=== PATIENT | male | born 1985 ===

== ENCOUNTER 2018-06-12 20:24 | Emergency (ER) | payer OTHER ==
[2018-06-12 20:44] VITALS: BP 126/72
--- NOTE | 2018-06-12 21:12 | UC ---
Hand/Wrist HPI - HPI Summary HPI Summary: Patient presents to urgent care for evaluation of forearm discomfort and erythema but happened while at work today. Patient works at [employer] and [facility] [employer]. Patient was in a restraint with a resident for probably 15 minutes. Patient states this occurred about 7:45 PM. Patient states his arm was flexed at the elbow, fully supinated and with extension of the wrist. Patient states after the restraint the dorsum of his hand was all purple in color and his fingers were white. Patient states since this time , normal coloration is coming back with us makes of pallor and redness to his fingers. Fingers are warm. Patient denies paresthesias of his fingers were dorsum of his hand. Patient does have erythema and tightness along his mid forearm, dorsal surface. Patient took Motrin are to arrival. Patient has small abrasions to his hands that were cleaned by the nurse at his facility and cover with a bandage. Patient also reportedly has a bite gustabo on his posterior upper arm with skin intact per the nurse where he works. Patient's tetanus is up-to- date. Patient's right-hand dominant. Patient states a few years ago he had a fracture to his forearm in the same restrained position. Patient's medications reviewed this visit - History Of Current Complaint Chief Complaint: UCUpperExtremity Stated Complaint: HAND INJURY Time Seen by Provider: 06/12/18 20:48 Hx Obtained From: Patient Onset/Duration: Sudden Onset Severity Initially: Mild Severity Currently: Mild Pain Intensity: 3 Pain Scale Used: 0-10 Numeric - Allergies/Home Medications Allergies/Adverse Reactions: Allergies Allergy/AdvReac Type Severity Reaction Status Date / Time No Known Allergies Allergy Verified 07/14/15 15:54 Home Medications: Home Medications Acetaminophen [Tylenol] 650 mg PO 06/12/18 [History] PMH/Surg Hx/FS Hx/Imm Hx Previously Healthy: Yes - Surgical History Surgical History: None Surgery Procedure, Year, and Place: testicular surgery - Family History Known Family History: Positive: None, Unknown - Social History Occupation: Employed Full-time Lives: With Family Alcohol Use: Rare Substance Use Type: None Smoking Status (MU): Current Every Day Smoker Type: Cigarettes Amount Used/How Often: 1/2 PPD Have You Smoked in the Last Year: Yes Review of Systems All Other Systems Reviewed And Are Negative: Yes Constitutional: Positive: Negative Skin: Positive: Other - abrasions Musculoskeletal: Positive: Other: - right forearm pain Is Patient Immunocompromised?: No Physical Exam - Summary Physical Exam Summary: Vital Signs Reviewed: Yes A+Ox3, no distress Eyes: Conjunctiva Clear ENT: Hearing grossly normal neck: supple Respiratory: Positive: No respiratory distress, No accessory muscle use Cardiovascular: skin color reflect adequate perfusion 2 radial, 2+ ulnar CBT < < 2 sec all fingers fingers warm, not dusky Musculoskeletal Exam: +abduct shoulder + flex.ext elbow, wrist + pronate/ supinate - pt with full range of motion but reports tightness in right mid dorsum forearm radial aspect + full ROM all fingers no crepitus Neurological: Positive: Alert, ambulatory without difficulty + thumb up, a ok, finger cross, finger spread + gross sensation all digits. reports paresthesia dorsum right forearm Psychological: Positive: Normal Response To Family Skin: Positive: no rash, no ecchymosis, erythematous patch right dorsum mid forearm. Pt dorsum hand and finger with patchy area or erythema and blanching - warm throughout no duskines s- color improving during evalution. Pt with scattered small, non suturable abraisons. no bleeding right posterior tricep pt with 2x2cm area erythema with mild ecchymosis - bite wound - skin intact Triage Information Reviewed: Yes Vital Signs: Initial Vital Signs Temp 98.4 F 06/12/18 20:36 Pulse 91 06/12/18 20:36 Resp 16 06/12/18 20:36 BP 126/72 06/12/18 20:36 Pulse Ox 98 06/12/18 20:36 Procedures - Splinting Right Upper Extremity Location: right forearm -applied by ct Hand-Made Type: orthoglass Splint: volar Pre-Proc Neuro Vasc Exam: normal Post-Proc Neuro Vasc Exam: normal, unchanged from pre-exam Diagnostics - Radiology No standard instances Radiology Interpretation Completed By: ED Physician - neg wrist neg forearm Hand/Wrist Course/Dx - Course Course Of Treatment: PT presents for evaluation of right forearm discomfort s/p restraint hold at work. Pt with discomfort dorsum right mid forearm, radial aspect pt RHD. Pt held restrain with hand supinated x 15 min. PT states immediately after his hand was "purple" color returning to hand and fingers. Pt with non sutuarble abrasions hand Pt with good capillary refill,Pt with patchy paresthesia right forearm Imaging neg for fx placed in volar splint by me for support elevate motrin/apap ice sling work note occumed f/u strict return precautions - Differential Dx/Diagnosis Provider Diagnosis: Forearm contusion, Abrasion Discharge - Sign-Out/Discharge Documenting (check all that apply): Patient Departure All imaging exams completed and their final reports reviewed: No - Discharge Plan Condition: Stable Disposition: HOME Patient Education Materials: Contusion in Adults (ED) Forms: *Gen. Provider Communication, *Work Release Referrals: Christina CARR,Hipolito Rea [Primary Care Provider] - Tristan Noland MD [Medical Doctor] - (Call Friday for an appointment Friday ) Additional Instructions: - Wear splint for comfort and support - elevate your arm as much as possible for the next 24 hours to help with swelling and pain - Okay to alternate ibuprofen (Advil, Motrin) 600mg and Tylenol every 3 hours for pain. Take with food. Do NOT take for more than 4-5 days. - okay to apply ice (wrapped in a towel) 20 minutes at a time, 2-3 times a day - schedule a follow-up appointment with Dr. Noland - occupational medicine provider- on Friday. if you develop pain, duskiness or blue/purple to your fingers, increased swelling, or you have any other questions or concerns you should go to the emergency department for further evaluation and treatment As discussed, your radiograph was reviewed by the provider that treated you tonight. It will be read by a radiologist tomorrow morning. If there is a finding other than that discussed with you today, you will receive a call from a care provider. - Billing Disposition and Condition Condition: STABLE Disposition: Home
--- NOTE | 2018-06-13 08:02 | UC ---
- Progress Note Progress Note: XR forearm and hand: IMPRESSION: NO ACUTE OSSEOUS INJURY. IF SYMPTOMS PERSIST, RECOMMEND REPEAT IMAGING. No change in plan of care Course/Dx - Diagnoses Provider Diagnoses: Forearm contusion, Abrasion Discharge - Sign-Out/Discharge Documenting (check all that apply): Post-Discharge Follow Up All imaging exams completed and their final reports reviewed: Yes - Discharge Plan Condition: Stable Disposition: HOME Patient Education Materials: Contusion in Adults (ED) Forms: *Gen. Provider Communication, *Work Release Referrals: Tristan Noland MD [Medical Doctor] - (Call Friday for an appointment Friday ) Christina CARR,Hipolito Rea [Primary Care Provider] - Additional Instructions: - Wear splint for comfort and support - elevate your arm as much as possible for the next 24 hours to help with swelling and pain - Okay to alternate ibuprofen (Advil, Motrin) 600mg and Tylenol every 3 hours for pain. Take with food. Do NOT take for more than 4-5 days. - okay to apply ice (wrapped in a towel) 20 minutes at a time, 2-3 times a day - schedule a follow-up appointment with Dr. Noland - occupational medicine provider- on Friday. if you develop pain, duskiness or blue/purple to your fingers, increased swelling, or you have any other questions or concerns you should go to the emergency department for further evaluation and treatment As discussed, your radiograph was reviewed by the provider that treated you tonight. It will be read by a radiologist tomorrow morning. If there is a finding other than that discussed with you today, you will receive a call from a care provider. - Billing Disposition and Condition Condition: STABLE Disposition: Home - Attestation Statements Provider Attestation: I was available for consult. This patient was seen by the URBANO. The patient was not presented to, seen by, or examined by me. -Germain
== END 2018-06-12 21:43 | disposition home or self-care (01) ==
LOC: UCEAST 20:24
DX: S50.11XA Contusion of right forearm, initial encounter (principal); S50.811A Abrasion of right forearm, initial encounter; X58.XXXA Exposure to other specified factors, initial encounter; Y92.9 Unspecified place or not applicable; Y99.0 Civilian activity done for income or pay; F17.210 Nicotine dependence, cigarettes, uncomplicated
CPT/HCPCS: 99212; G0463

== ENCOUNTER 2018-12-08 08:05 | Emergency (ER) | payer BC, OTHER ==
[2018-12-08] MEDS ORDERED: Morphine 4 MG/ML VIAL (1 ml) 4 MG/ML VIAL IV ONE (08:27)
--- OUTSIDE RECORDS SUMMARY | 2018-12-08 08:31 | XMS REPORT | Summary of Care ---
:1985 Author Organization [facility] Address [address] [facility] [place] [address] Care Team Providers Name Role Phone Elsy Hoang NP Primary Care Provider Reason for Visit Reason Comments Flank Pain Encounter Details Date Type Department Care Team Description 11/25/[address] [facility] Emergency Department Emergency [address] [place] [address] Allergies No Known Allergiesdocumented as of this encounter (statuses as of 11/26/2018) Medications Medication Sig Dispensed Refills Start Date End Date Status amphetamine-dextroamphet Take 20 mg by 60 Tab 0 11/10/2018 Active amine (ADDERALL) 20 MG mouth TWICE Oral TabIndications: DAILY. Max Daily Attention deficit Amount: 40 mg. hyperactivity disorder (ADHD), predominantly inattentive type Testosterone 1.62 % Place onto 0 Active Transdermal Gel skin. documented as of this encounter (statuses as of 11/26/2018) Active Problems Problem Noted Date Malignant neoplasm of left testis 01/23/2018 Attention deficit hyperactivity disorder (ADHD), predominantly inattentive type documented as of this encounter (statuses as of 11/26/2018) Social History Tobacco Use Types Packs/Day Years Used Date Current Some Day Smoker 0.5 10 Smokeless Tobacco: Current User Chew Alcohol Use Drinks/Week oz/Week Comments No occasional Sex Assigned at Date Recorded Not on file Job Start Date Occupation Industry Not on file Not on file Not on file Travel History Travel Start Travel End No recent travel history available. documented as of this encounter Last Filed Vital Signs Vital Sign Reading Time Taken Comments Blood Pressure 160/97 11/25/2018 7:05 PM EDT Pulse 86 11/25/2018 7:05 PM EDT Temperature 37.3 11/25/2018 7:05 PM EDT C (99.2 F) Respiratory Rate 20 11/25/2018 7:05 PM EDT Oxygen Saturation 98% 11/25/2018 7:05 PM EDT Inhaled Oxygen Concentration - - Weight - - Height - - Body Mass Index - - documented in this encounter Discharge Instructions Paul Hill NP - 11/25/2018Follow-up with your oncologist Dr. Paula. Return to the ED for worsening symptoms. AttachmentsThe following attachments cannot be sent through Care Everywhere.LYMPHADENOPATHY (GENERAL INFORMATION) (IVORIAN)Multiple Pulmonary Nodules (Latvian)THORACIC PAIN (REFERENCES) (IVORIAN)documented in this encounter Plan of Treatment Health Maintenance Due Date Last Done Comments PNEUMOCOCCAL 0-64 YRS ( - 1992 PPSV23) DEPRESSION SCREENING 04/17/2018 04/17/2017 INFLUENZA VACCINE (#1) 2018 Medication Use Agreement 07/21/2019 07/20/2018 HPV IMMUNIZATION SERIES Aged Out No longer eligible based on patient's age to complete this topic MENINGOCOCCAL VACCINE IMM Aged Out No longer eligible based on patient's age to complete this topic documented as of this encounter Goals Goal Patient Goal Associated Recent Patient-Stated? Author Type Problems Progress Depression Depression No pradip Vasquez (PHQ-9) MD Hipolito total score < 5 Note: This is an individualized treatment (depression) goal for Rex Pascal: Displayed above is your goal for a depression screening (PHQ-9) score that would indicate good control of your depression. Keep a regular sleep schedule Lifestyle No Hipolito Vasquez MD Note: This is an individualized lifestyle goal for Rex Pascal: Please maintain a regular sleep schedule. This may help with some symptoms of depression. Take all prescribed medications as Self-management No Hipolito Vasquez MD directed Note: This is an individualized self-management goal for Rex Pascal: Please take all prescribed medications as directed. 1. Do not skip doses. If you cannot afford your medications, talk with your doctor. 2. Use a pill reminder system such as a pill box if needed. Your pharmacist can help you with this. 3. Contact your Pharmacy 5 days before your medication runs out. If you cannot take your medications for any reasons, talk with your doctor. 4. Please bring all of your medication bottles and inhalers (or a list of all your medications/inhalers) with you to every visit. Potential barriers to meeting all of your care plan goals will continue to be addressed on an ongoing basis. documented as of this encounter Procedures Procedure Name Priority Date/Time Associated Comments Diagnosis CT ABDOMEN PELVIS STAT 11/25/2018 8:40 Results for this WITHOUT IV CONTRAST PM EDT procedure are in the results section. URINALYSIS (LAB) WITH STAT 11/25/2018 8:25 Results for this REFLEX CULTURE PM EDT procedure are in the results section. CBC WITH DIFFERENTIAL STAT 11/25/2018 8:18 Results for this PM EDT procedure are in the results section. COMPREHENSIVE STAT 11/25/2018 8:18 Results for this METABOLIC PANEL PM EDT procedure are in the results section. documented in this encounter Results CT ABDOMEN PELVIS WITHOUT IV CONTRAST (11/25/2018 8:40 PM EDT) Specimen Impressions Performed At 1. Numerous pulmonary nodules are present in the lung bases and there is at least one grossly pathologic retroperitoneal lymph node. The findings are most in keeping with metastatic testicular carcinoma given the patient's documented clinical history. No outside imaging is available to determine if these findings are new or represent a change. 2. Otherwise there are no acute abdominal findings. There is no evidence of nephroureterolithiasis or urinary obstruction. Urgency: IMPORTANT. This report contains IMPORTANT results which require clinical attention. Signed by Ugo Yuen on 11/25/2018 8:49 PM Narrative Performed At Procedure(s): CT ABDOMEN PELVIS WITHOUT IV CONTRAST Date of service: 11/25/2018 8:32 PM Provided clinical information: 33 years, Male, "Flank pain, stone disease suspected" Procedure and materials: Axial CT images were obtained through the abdomen and pelvis. Sagittal and coronal reformatted images were provided. Contrast: None. Potential limitations: Lack of contrast limits organ evaluation. Comparison studies: None. Observations: There are numerous (greater than 20) pulmonary nodules in the bilateral lower lobes measuring from approximately 2 mm up to 1.6 cm. Limited inclusion of the heart is unremarkable. Noncontrast appearance of the liver, gallbladder, pancreas, spleen, and adrenal glands is negative. The kidneys, ureters, and bladder are negative with no evidence of stones or obstruction. The distal esophagus, stomach, and bowel are negative. There are no acute vascular findings. There is left periaortic adenopathy with isolated enlarged node measuring 3.8 x 2.2 cm just below the level of the renal vein. A few additional scattered retroperitoneal nodes are present, though smaller. No acute osseous findings. Procedure Note Interface, Rad Results - 11/25/2018 8:51 PM EDT Procedure(s): CT ABDOMEN PELVIS WITHOUT IV CONTRAST Date of service: 11/25/2018 8:32 PM Provided clinical information: 33 years, Male, "Flank pain, stone disease suspected" Procedure and materials: Axial CT images were obtained through the abdomen and pelvis. Sagittal and coronal reformatted images were provided. Contrast: None. Potential limitations: Lack of contrast limits organ evaluation. Comparison studies: None. Observations: There are numerous (greater than 20) pulmonary nodules in the bilateral lower lobes measuring from approximately 2 mm up to 1.6 cm. Limited inclusion of the heart is unremarkable. Noncontrast appearance of the liver, gallbladder, pancreas, spleen, and adrenal glands is negative. The kidneys, ureters, and bladder are negative with no evidence of stones or obstruction. The distal esophagus, stomach, and bowel are negative. There are no acute vascular findings. There is left periaortic adenopathy with isolated enlarged node measuring 3.8 x 2.2 cm just below the level of the renal vein. A few additional scattered retroperitoneal nodes are present, though smaller. No acute osseous findings. IMPRESSION 1. Numerous pulmonary nodules are present in the lung bases and there is at least one grossly pathologic retroperitoneal lymph node. The findings are most in keeping with metastatic testicular carcinoma given the patient's documented clinical history. No outside imaging is available to determine if these findings are new or represent a change. 2. Otherwise there are no acute abdominal findings. There is no evidence of nephroureterolithiasis or urinary obstruction. Urgency: IMPORTANT. This report contains IMPORTANT results which require clinical attention. Signed by Ugo Yuen on 11/25/2018 8:49 PM URINALYSIS (LAB) WITH REFLEX CULTURE (11/25/2018 8:25 PM EDT) Urine Color Yellow Yellow [facility] Urine Appearance Clear Clear [facility] Urine Glucose Negative Negative mg/dl [facility] Urine Bilirubin Negative Negative [facility] Urine Ketones Negative Negative [facility] Urine Specific 1.020 1.005 - 1.030 [facility] [place] [facility] Urine Blood Negative Negative [facility] Urine Ph 6.0 5.0 - 8.0 [facility] Urine Protein Negative Negative mg/dl [facility] Urine Urobilinogen 0.2 0.2 - 1.0 E.U./DL [facility] Urine Nitrite Negative Negative [facility] Urine Leukocytes Negative Negative [facility] Specimen Urine Performing Organization Address [facility] Phone Number [facility] [address] [place] [address] COMPREHENSIVE METABOLIC PANEL (11/25/2018 8:18 PM EDT) Sodium 139 134 - 145 mmol/L [facility] Potassium 4.2 3.5 - 5.1 mmol/L [facility] Chloride 98 98 - 107 mmol/L [facility] CO2 28 22 - 30 mmol/L [facility] Calcium 9.2 8.3 - 10.1 mg/dl [facility] Albumin 4.7 3.5 - 5.0 g/dl [facility] BUN 10 9 - 20 mg/dl [facility] Creatinine 1.0 0.8 - 1.5 mg/dl [facility] Glucose 88 70 - 99 mg/dl [facility] Total Protein 7.9 6.3 - 8.2 g/dl [facility] Total Bilirubin 0.4 0.0 - 1.1 MG/DL [facility] AST 29 17 - 59 U/L [facility] ALT 31 21 - 72 U/L [facility] Alkaline 70 40 - 150 U/L [facility] eGFR >60 See Interpretation [place]ETH[place]DA Comment: Below ml/min/1.73ml [facility] Estimated GFR Interpretation: Above 60ml/min/1.73m2 = Normal Renal Function 30-59 ml/min/1.73m2 = Stage 3 Chronic Kidney Disease 15-29 ml/min/1.73m2 = Stage 4 Chronic Kidney Disease Less than 15 ml/min/1.73m2 = Stage 5 Chronic Kidney Disease The GFR value is calculated using the Modification of Diet in Renal Disease ( MDRD) Study Equation which can be found at: https://www.kidney.org/content/dqks-gcixv-wfnzgubu BUN/Creatinine 10 6 - 22 RATIO [facility] Anion Gap 13 (H) 3 - 11 mmol/L [facility] A/G Ratio 1.5 0.8 - 2.0 ratio [facility] Specimen Blood Performing Organization Address [facility] Phone Number [facility] [address] [place] [address] CBC WITH DIFFERENTIAL (11/25/2018 8:18 PM EDT) WBC Count 7.60 4.23 - 9.07 K/uL [facility] RBC Count 5.53 4.30 - 5.89 M/UL [facility] Hemoglobin 17.7 (H) 13.7 - 17.5 g/dL [facility] Hematocrit 51.9 (H) 40.1 - 51.0 % [facility] MCV 93.9 (H) 79.0 - 92.2 FL [facility] MCH 32.0 25.7 - 32.2 PG [facility] MCHC 34.1 32.3 - 36.5 g/dL [facility] Platelet Count 236 163 - 337 K/uL [facility] MPV 9.6 9.4 - 12.4 [place] [facility] RDW 12.4 11.6 - 14.4 % [facility] Neutrophil % 62.9 34.0 - 67.9 % [facility] Lymphocyte % 22.8 21.8 - 53.1 % [facility] Monocyte % 11.8 5.3 - 12.2 % [facility] Eosinophil % 1.2 0.8 - 7.0 % [facility] Basophil % 0.4 0.2 - 1.2 % [facility] Neutrophil # 4.78 1.78 - 5.38 K/UL [facility] Lymphocyte # 1.73 1.32 - 3.57 K/UL [facility] Monocyte # 0.90 (H) 0.30 - 0.82 K/UL [facility] Eosinophil # 0.09 0.04 - 0.54 K/UL [facility] Basophil # 0.03 0.01 - 0.08 K/UL [facility] Immature Gran % 0.9 (H) 0.0 - 0.4 % [facility] Immature Gran # 0.07 (H) 0.00 - 0.03 K/uL [facility] Specimen Blood Performing Organization Address City/State/Zipcode Phone Number [facility] [address] [place] [address] documented in this encounter Visit Diagnoses Diagnosis Retroperitoneal lymphadenopathy - Primary Enlargement of lymph nodes Acute right-sided thoracic back pain Pulmonary nodules Other nonspecific abnormal finding of lung field documented in this encounter Administered Medications Medication Order MAR Action Action Date Dose Rate Site normal saline bolus 1,000 mL New Bag 11/25/2018 9:15 PM EDT 1,000 mL 1,000 mL, Intravenous, BOLUS, 1 dose, 11/25/18 at 2115 documented in this encounter Insurance Payer Benefit Plan / Subscriber ID Effective Dates Phone Address Type Group BCBS EMPIRE BCBS EMPIRE PPO xxxxxxxxxxxx 2018-Present [employer] (Work) documented as of this encounter
[2018-12-08 08:43] LABS: ABS Eosinophils 0.1 10^3/ul (0-0.6); ABS Lymphocytes 1.1 10^3/ul (1.0-4.8); ABS Monocytes 1.2 10^3/ul (0-0.8); ABS Neutrophils 6.6 10^3/ul (1.5-7.7); Eosinophil % 0.6 %; Hematocrit 49 % (42-52); Lymphocyte % 12.1 %; Mean Corpuscular HGB Conc 35 g/dL (31-36); Mean Corpuscular Hemoglobin 31 pg (27-31); Mean Corpuscular Volume 91 fL (80-94); Mean Platelet Volume 7.8 fL (7.4-10.4); Platelet Count 232 10^3/uL (150-450); Red Blood Count 5.46 10^6 /uL (4.18-5.48); Red Cell Distribution Width 13 % (10-15)
--- NOTE | 2018-12-08 08:47 | ED ---
Back Pain - HPI Summary HPI Summary: Pt is a 33 y/o M presenting to the ED with a chief complaint of stabbing flank and back pain that began on the way to work this morning but has been intermittent over the last 3wks. He went to [facility] last week for similar sx of lower back pain and had a CT performed with no significant findings as per patient. The pain is currently higher up on his R back and worsened with deep breaths. He reports associated with hemoptysis that started this morning. Pt previously had a fever, but denies fever at the present time. He denies N/V/D, constipation, dysuria, hematuria, testicular pain, or edema. Pt denies taking hormones, hx of blood clots, or treating w/ pain medications [employer]. He has a PMHx of testicular cancer diagnosed in December 2017. He also had a recent CT scan and MRI in [place] that showed peritoneal masses and enlarged lymph nodes with nodules in lower lungs as per patient. He has a SHx of testicular surgery for an undescended testicle. Medications reviewed. Allergies noted. - History of Current Complaint Chief Complaint: EDFlankPain Stated Complaint: BACK PAIN PER PT Time Seen by Provider: 12/08/18 08:17 Hx Obtained From: Patient Onset/Duration: Lasting Weeks, Still Present Onset/Duration: Started Weeks Ago, Still Present Timing: Intermittent, Lasting Weeks Back Pain Location: Is Discrete @ - Lower back Severity Initially: Moderate Severity Currently: Severe Pain Intensity: 10 Pain Scale Used: 0-10 Numeric Character: Sharp Aggravating Symptom(s): Nothing Alleviating Symptom(s): Nothing Associated Signs And Symptoms: Positive: Fever - Resolved, Flank Pain - Allergies/Home Medications Allergies/Adverse Reactions: Allergies Allergy/AdvReac Type Severity Reaction Status Date / Time No Known Allergies Allergy Verified 12/08/18 08:19 PMH/Surg Hx/FS Hx/Imm Hx Previously Healthy: Yes Endocrine/Hematology History: Denies: Hx Diabetes, Hx Thyroid Disease Cardiovascular History: Denies: Hx Hypercholesterolemia, Hx Hypertension, Hx Peripheral Vascular Disease Musculoskeletal History: Denies: Hx Arthritis, Hx Osteoporosis Sensory History: Denies: Hx Cataracts, Hx Contacts or Glasses, Hx Glaucoma Opthamlomology History: Denies: Hx Cataracts, Hx Contacts or Glasses, Hx Glaucoma Neurological History: Denies: Hx Headaches, Hx Seizures, Hx Transient Ischemic Attacks (TIA) Psychiatric History: Reports: Hx Depression Denies: Hx Anxiety - Cancer History Cancer Type, Location and Year: Testicular cancer, December 2017 - Surgical History Surgery Procedure, Year, and Place: testicular surgery Infectious Disease History: No Infectious Disease History: Denies: Hx Clostridium Difficile, Hx Hepatitis, Hx Human Immunodeficiency Virus (HIV), Hx of Known/Suspected MRSA, Hx Shingles, Hx Tuberculosis, Hx Known/ Suspected VRE, Hx Known/Suspected VRSA, History Other Infectious Disease, Traveled Outside the [place] in Last 30 Days - Family History Known Family History: Positive: Diabetes - thinks his mom has DM - Social History Alcohol Use: None Hx Substance Use: No Substance Use Type: Reports: None Hx Tobacco Use: Yes Smoking Status (MU): Light Every Day Tobacco Smoker Type: Cigarettes Amount Used/How Often: 1/2 PPD Have You Smoked in the Last Year: Yes Review of Systems Positive: Fever - resolved Positive: Shortness Of Breath, Cough - Hemoptysis Positive: Abdominal Pain - Flank, Other - Negative constipation. Negative: Vomiting, Diarrhea, Nausea Positive: flank pain. Negative: dysuria, hematuria, pain - testicular Positive: Other - postive lower back pain. Negative: Edema All Other Systems Reviewed And Are Negative: Yes Physical Exam - Summary Physical Exam Summary: Constitutional: Well-developed, Well-nourished, Alert. Mild distress Skin: Warm, Dry HENT: Normocephalic; Atraumatic Eyes: Conjunctiva normal Neck: Musculoskeletal ROM normal neck. (-) JVD, (-) Stridor, (-) Tracheal deviation Cardio: Rhythm regular, tachycardic in room,, Heart sounds normal; Intact distal pulses; The pedal pulses are 2+ and symmetric. Radial pulses are 2+ and symmetric. (-) Murmur Pulmonary/Chest wall: Effort normal. (-) Respiratory distress, (-) Wheezes, (-) Rales. Tachypneic, splinting with each breath. Abd: Soft, (-) tenderness, (-) Distension, (-) Guarding, (-) Rebound Musculoskeletal: (-) Edema Lymph: (-) Cervical adenopathy Neuro: Alert, Oriented x3 Psych: Mood and affect Normal Triage Information Reviewed: Yes Vital Signs On Initial Exam: Initial Vitals Temp Pulse Resp BP Pulse Ox 99.5 F 100 18 156/79 96 12/08/18 08:09 12/08/18 08:09 12/08/18 08:09 12/08/18 08:09 12/08/18 08:09 Vital Signs Reviewed: Yes Diagnostics - Vital Signs Vital Signs Temp Pulse Resp BP Pulse Ox 12/08/18 08:33 24 12/08/18 08:09 99.5 F 100 18 156/79 96 - Laboratory Result Diagrams: 12/08/18 08:32 12/08/18 08:32 Lab Statement: Any lab studies that have been ordered have been reviewed, and results considered in the medical decision making process. - CT Chest/thorax CTA CT Interpretation Completed By: Radiologist Summary of CT Findings: Chest/thorax CTA IMPRESSION: Suboptimal opacification of the pulmonary arteries however no definite pulmonary embolus is noted. No evidence of aortic dissection is noted. Extensive mediastinal and right hilar adenopathy. Multiple pulmonary parenchymal lesions consistent with metastatic disease. Enlarged gastrohepatic ligament lymph nodes consistent with metastatic disease. There may be retrocrural lymph node enlargement well. Reviewed by ED physician. - EKG 92BPM Cardiac Rate: NL EKG Rhythm: Sinus Rhythm Summary of EKG Findings: EKG at 0907 shows 92 BPM, sinus rhythm, Q wave 3, T wave inversion 3, benign early repolarization, no STEMI. 0907 Cardiac Rate: NL - 92bpm EKG Rhythm: Sinus Rhythm Summary of EKG Findings: EKG at 0907 shows 92 BPM, sinus rhythm, Q wave 3, T wave inversion 3, benign early repolarization, no STEMI. Re-Evaluation - Re-Evaluation 1st re-eval Re-Evaluation Time: 10:19 Change: Improved Comment: Pt is feeling better, not tachycardic or tachypnic. Back Pain Course/Dx - Course Course Of Treatment: Patient is here with pleuritic chest pain on the right that comes and goes in the past 3 weeks. Patient was evaluated 1 week ago at an outside hospital where CT scan for kidney stones was negative for stones but did show peritoneal masses. Patient has a history of testicular cancer that was in remission. Patient had pain scan performed in [place] including an MRI of the brain but does not know the results. Patient came in in moderate distress, splinting, and tachypnea. Patient had a CTA of the chest to rule out PE which was negative for PE but did show multiple areas of metastatic disease. Patient and mother were made aware of this results. Patient's pain was controlled with IV morphine and Dilaudid. Patient was discharged with tramadol. Patient has appointment on with his oncologist in [place].. - Diagnoses Provider Diagnoses: Metastatic cancer, Chest pain, Shortness of breath Discharge ED - Sign-Out/Discharge Documenting (check all that apply): Patient Departure Patient Received Moderate/Deep Sedation with Procedure: No - Discharge Plan Condition: Stable Disposition: HOME Prescriptions: traMADol TAB* [Ultram*] 50 mg PO Q6HR PRN #12 tab MDD 4 tablets PRN Reason: Pain - Severe Referrals: Christina CARR,Hipolito Rea [Primary Care Provider] - Additional Instructions: Follow-up with oncologist in [place] on . Come back to ED if worsening symptoms or pain that is uncontrollable. - Billing Disposition and Condition Condition: STABLE Disposition: Home - Attestation Statements Document Initiated by Scribe: Yes Documenting Scribe: Skyla Prabhakar Provider For Whom Tavo is Documenting (Include Credential): Damien Bean MD. Scribe Attestation: Mary Giraldo Kathryn O'Connor, scribed for Damien Bean MD. on 12/08/18 at 1213. Scribe Documentation Reviewed: Yes Provider Attestation: The documentation as recorded by the scribe, Skyla Prabhakar accurately reflects the service I personally performed and the decisions made by Damien hollins MD. Status of Scribe Document: Viewed
[2018-12-08 08:52] LABS: INR 1.27 (0.82-1.09)
[2018-12-08 09:00] LABS: Albumin 4.2 g/dL (3.2-5.2); Albumin/Globulin Ratio 1.4 (1-3); BUN/Creatinine Ratio 6.6 (8-20); Calcium 9.5 mg/dL (8.6-10.3); Potassium 4.3 mmol/L (3.5-5.0); Total Bilirubin 0.6 mg/dL (0.2-1.0); Total Protein 7.2 g/dL (6.4-8.9); Troponin I 0.03 ng/mL (<0.04)
[2018-12-08] MEDS ORDERED: HYDROmorphone INJ* 0.5 MG/0.5 ML SYRINGE IV ONE (09:03)
[2018-12-08] MEDS ORDERED: Iohexol 350* (CONTRAST) 500 ML MDV IV ONE (09:34)
[2018-12-08 10:43] VITALS: BP 124/81
== END 2018-12-08 10:39 | disposition home or self-care (01) ==
LOC: ED 08:05
DX: C62.90 Malignant neoplasm of unspecified testis, unspecified whether descended or undescended (principal); C78.00 Secondary malignant neoplasm of unspecified lung; R07.9 Chest pain, unspecified; R06.02 Shortness of breath; F17.210 Nicotine dependence, cigarettes, uncomplicated; Z79.899 Other long term (current) drug therapy
CPT/HCPCS: 36415; 71275; 80053; 83690; 83880; 84484; 85025; 85610; 93005; 96374; 96375; 99283; J1170; J2270; Q9967